=== PATIENT | female | born 1960 | race Caucasian/White ===

== ENCOUNTER → 2020-10-23 11:34 | Outpatient (BNVA) | payer MEDICARE, SELFPAY | PROVIDERS: PCP Family Medicine; Visit Provider Nurse Practitioner Women's Health | DX: N76.0 Acute vaginitis (principal); R35.0 Frequency of micturition; N95.2 Postmenopausal atrophic vaginitis | CPT/HCPCS: 81000; 87086 ==

== ENCOUNTER → 2022-09-13 10:15 | Outpatient (BNVA) | payer OTHER, SELFPAY ==
[2022-05-04 09:32] VITALS: BP 122/72; BMI 32.9
== END ==
PROVIDERS: Visit Provider Psychiatry & Neurology Psychiatry
DX: F33.1 Major depressive disorder, recurrent, moderate (principal)
CPT/HCPCS: 80061; 83036